=== PATIENT | female | born 1980 | race Caucasian/White ===

== ENCOUNTER 2021-06-11 17:02 | Emergency (ER) | payer SELFPAY ==
[~2021-06-11] VITALS: Ht 162.6 cm; Wt 63.0 kg
[2021-06-11 17:24] VITALS: BP 121/68
[2021-06-11] MEDS ORDERED: methylPREDNISolone ACETATE 40 MG/ML VIAL. IM ONE (18:45)
[2021-06-11] MEDS ORDERED: HYDROcodone/APAP 5/325MG 1 TAB TABLET PO ONE (18:45)
[2021-06-11] MEDS ORDERED: KETOROLAC 60 MG/2 ML VIAL. IM ONE (18:45)
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
[2021-06-11] MEDS ORDERED: IBUP-1007 PO (19:15)
== END 2021-06-11 19:33 | disposition home or self-care (01) ==
LOC: ER 17:02
DX: M54.6 Pain in thoracic spine (principal); G89.29 Other chronic pain; R07.81 Pleurodynia; F17.200 Nicotine dependence, unspecified, uncomplicated; Z88.5 Allergy status to narcotic agent
CPT/HCPCS: 96372; 99284; J1030; J1885